=== PATIENT | female | born 1955 | race Caucasian/White ===

== ENCOUNTER → 2017-08-17 | Outpatient (CLI) | payer BC ==
[~2017-08-17] MED LIST: ALB17R INH; ASPI-1471 PO; CETI1TAB75 PO; FLU20 PO; FLU220R INH; FLU44R IH; HYDR-4225 PO; LANS30CA70 PO; LEV100 PO; LEVO125T77 PO; METO25TA23 PO; MON10 PO; MONT10TA22 PO; PER PO; PROAIRPT IH; VIT-9 PO; VITA-200 PO
--- NOTE | 2017-08-17 09:16 | EKG ---
FACILITY: [facility] PATIENT NAME: VINNY EVANS : [id number] MR: [id number] V: [id number] EXAM DATE: ORDERING PHYSICIAN: VIKRAM HOOPER TECHNOLOGIST: BONIFACIO Rios Reason : PREOP-LEFT WRIST Blood Pressure : / mmHG Vent. Rate : 062 BPM Atrial Rate : 062 BPM P-R Int : 182 ms QRS Dur : 076 ms QT Int : 404 ms P-R-T Axes : -03 -12 024 degrees QTc Int : 410 ms Normal sinus rhythm with sinus arrhythmia Normal ECG When compared with ECG of 14-JAN-2013 13:14, No significant change was found Confirmed by MINDY AMADOR ([id number]) on 08/17/2017 4:57:02 PM Referred By: SANDIE Confirmed By:MINDY AMADOR
== END ==
LOC: LAB 08:08
PROVIDERS: ATTEND Anesthesiology
DX: Z01.810 Encounter for preprocedural cardiovascular examination (principal); Z01.812 Encounter for preprocedural laboratory examination; E03.9 Hypothyroidism, unspecified; M65.4 Radial styloid tenosynovitis [de Quervain]
CPT/HCPCS: 36415; 82310; 82374; 82435; 82565; 82947; 84132; 84295; 84443; 84520; 93005

== ENCOUNTER → 2018-03-11 | Outpatient (CLI) | payer BC ==
--- NOTE | 2018-03-11 19:32 | RADIOLOGY IMAGING REPORT ---
FACILITY: [facility] PATIENT NAME: Pallavi Cobian : 1955 MR: [id number] V: [id number] EXAM DATE: ORDERING PHYSICIAN: MAIKEL SINGLETARY TECHNOLOGIST: Location: [facility] Patient: Pallavi Cobian : 1955 Visit/Account:[id number] Date of Sevice: 03/11/2018 Technique: CHEST PA AND LAT HISTORY: Cough Comparison studies: Chest radiographs August 19, 2015 FINDINGS: No acute airspace consolidation. There is mild central peribronchial thickening. The cardio mediastinal silhouette is unchanged. IMPRESSION: 1. Mild central peribronchial thickening which can be seen in the setting of bronchitis, asthma or t obacco usage. Report Dictated By: Sudheer Sanchez DO at 03/11/2018 7:27 PM Report E-Signed By: Sudheer Sanchez DO at 03/11/2018 7:28 PM WSN:[id number]
== END ==
LOC: RAD 17:27
PROVIDERS: ATTEND Family Medicine
DX: R05 Cough (principal)
CPT/HCPCS: 71046

== ENCOUNTER 2018-10-03 13:12 | Emergency (ER) | payer BC ==
--- NOTE | 2018-10-03 13:20 | ER Report ---
History and Physical Time Seen By MD: 13:19 HPI/ROS CHIEF COMPLAINT: Fall HISTORY OF PRESENT ILLNESS: This is a 63-year-old female who presents to emergency department for follow-up. Patient states that 5 days ago she tripped while in the kitchen falling face 1st onto her hardwood floor, hit her chest at the same time, she did not come in for an evaluation at that time. She does have some facial discomfort and mild headaches, she also complains of anterior chest discomfort. She has bruising to both eyes, her left chin as well as her left temporal area. She's been taking ibuprofen since the injury to help with pain, she also takes a daily aspirin. She is unsure if she had a positive loss of consciousness. No fevers since. No visual disturbances, no bleeding from eyes, ears nose or mouth. REVIEW OF SYSTEMS: Constitutional: No fever, no chills. Eyes: No discharge. ENT: No sore throat. Cardiovascular: As above. Respiratory: No cough, no shortness of breath. Gastrointestinal: No abdominal pain, no vomiting. Genitourinary: No hematuria. Musculoskeletal: As above. Skin: As above. Neurological: No headache. Allergies: Uncoded Allergies: Hayfever (Allergy, Unknown, UNKNOWN, 07/26/11) Home Meds Active Scripts Hydrocodone Bit/Acetaminophen (HYDROCODON-ACETAMINOPHEN 5-325) 1 Each Tablet, 1 EACH PO Q4-6H PRN for PAIN, #12 TAB Prov:KESHA HARP- 10/03/18 Ondansetron Hcl (ZOFRAN) 4 Mg Tablet, 4 MG PO Q4-6H PRN for prn, #20 TAB Prov:KESHA HARP-BC 10/03/18 Lidocaine (Lidocaine) 5 % Adh..patch, 1 PATCH.24H TOP DAILY PRN for prn, #8 PATCH.24H 0 Refills Prov:KESHA HARP 10/03/18 Reported Medications Multivitamin (MULTIVITAMINS) 1 Each Capsule, 1 EACH PO, CAPSULE 10/03/18 Vit A/Vit C/Vit E/Zinc/Copper (PRESERVISION AREDS TABLET) 1 Each Tablet, 1 EACH PO DAILY 09/25/16 Metoprolol Succinate (METOPROLOL SUCCINATE) 25 Mg Tab.er.24h, 1 TAB PO BID TAKE ONE TABLET BY MOUTH EVERY DAY 01/14/13 P-Ephed Hcl/Cetirizine Hcl (Zyrtec-D Tablet) 1 Tab.sr .12 H Tab.sr.12h, 1 TAB.SR PO QODAY, 0 Refills 11/20/08 Levothyroxine Sodium (Levoxyl) 125 Mcg Tablet, 112 MCG PO DAILY, 0 Refills 11/20/08 Lansoprazole (Prevacid) 30 Mg Capsule.dr, 30 MG PO QDAY, 0 Refills 11/20/08 Montelukast Sodium (Singulair) 10 Mg Tab, 10 MG PO QDAY, 0 Refills 11/20/08 Fluoxetine Hcl (Prozac) 20 Mg Cap, 40 MG PO DAILY, #20 0 Refills 11/20/08 Fluticasone Propionate (Flovent Hfa 220 Mcg) 12 Gm Aer.w.adap, 2 PUFF INH DAILY PRN for ALLERGY SYMPTOMS, 0 Refills 11/20/08 Discontinued Reported Medications Aspirin (ASPIR 81) 81 Mg Tablet.dr, 81 MG PO QDAY, TAB 09/25/16 Vitamin E Acetate (VITAMIN E) 400 Unit Capsule, 400 UNIT PO DAILY, CAPSULE 09/25/16 Past Medical/Surgical History The patient has a past medical and surgical history of headaches, frequent bronchitis, asthma, hiatal hernia, hypothyroidism, hysterectomy, history of smoking. Reviewed Nurses Notes: Yes Hx Smoking: Yes Smoking Status: Former Smoker Exposure to Second Hand Smoke?: No Hx Substance Use Disorder: No Hx Alcohol Use: Yes Constitutional Vital Sign - Last 24 Hours 10/03/18 10/03/18 10/03/18 10/03/18 13:24 13:30 14:00 15:00 Temp 98.2 Pulse 69 66 61 63 Resp 20 B/P (MAP) 192/133 174/110 (131) 166/103 (124) 170/102 (124) Pulse Ox 96 94 91 94 O2 Delivery Room Air 10/03/18 10/03/18 10/03/18 10/03/18 15:30 15:37 15:45 16:00 Pulse 64 65 B/P (MAP) 137/120 (126) 184/100 (128) 147/95 (112) 160/91 (114) Pulse Ox 93 96 10/03/18 10/03/18 10/03/1819 16:15 16:20 16:25 16:30 Pulse 67 65 65 B/P (MAP) 157/92 (113) 143/87 (105) Pulse Ox 96 90 97 10/03/18 16:35 Pulse 67 Pulse Ox 96 Physical Exam General Appearance: The patient is alert, has no immediate need for airway protection and no signs of toxicity. Eyes: Pupils equal and round no pallor or injection. ENT, Mouth: Mucous membranes are moist. Respiratory: There are no retractions, lungs are clear to auscultation. Cardiovascular: Regular rate and rhythm. No murmurs, clicks or rubs. Gastrointestinal: Abdomen is soft and non tender, no masses, bowel sounds normal. Neurological: Alert and oriented 4. Moving all extremities. Following all commands. No focal neuro deficits. Skin: Healing contusions to bilateral orbits and left chin and left temporal region. Musculoskeletal: Neck is supple non tender. Anterior chest pain with palpation, no crepitus or bruising or deformities identified. Extremities are nontender, nonswollen and have full range of motion. DIFFERENTIAL DIAGNOSIS: After history and physical exam differential diagnosis was considered for contusion, rib fracture, intracranial bleed, facial fracture, facial contusion. Medical Decision Making Data Points Result Diagram: 10/03/18 1341 10/03/18 1341 Laboratory Hematology Test 10/03/18 13:41 Red Blood Count 4.64 M/uL (4.17-5.56) Mean Corpuscular Volume 92.0 fL (80.0-96.0) Mean Corpuscular Hemoglobin 31.4 pg (26.0-33.0) Mean Corpuscular Hemoglobin Concent 34.1 g/dL (32.0-36.0) Red Cell Distribution Width 13.9 % (11.5-14.5) Mean Platelet Volume 8.0 fL (7.2-11.1) Neutrophils (%) (Auto) 73.6 % (39.4-72.5) Lymphocytes (%) (Auto) 13.9 % (17.6-49.6) Monocytes (%) (Auto) 7.1 % (4.1-12.4) Eosinophils (%) (Auto) 4.6 % (0.4-6.7) Basophils (%) (Auto) 0.8 % (0.3-1.4) Nucleated RBC Relative Count (auto) 0.0 /100WBC Neutrophils # (Auto) 7.5 K/uL (2.0-7.4) Lymphocytes # (Auto) 1.4 K/uL (1.3-3.6) Monocytes # (Auto) 0.7 K/uL (0.3-1.0) Eosinophils # (Auto) 0.5 K/uL (0.0-0.5) Basophils # (Auto) 0.1 K/uL (0.0-0.1) Nucleated RBC Absolute Count (auto) 0.00 K/uL Prothrombin Time 12.4 seconds (12.0-14.4) Prothromb Time International Ratio 0.92 Activated Partial Thromboplast Time 29 seconds (23-35) Sodium Level 131 mmol/L (137-145) Potassium Level 4.3 mmol/L (3.5-5.0) Chloride Level 93 mmol/L (98-107) Carbon Dioxide Level 24 mmol/L (22-31) Blood Urea Nitrogen 7 mg/dl (7-18) Creatinine 0.60 mg/dl (0.52-1.04) Glomerular Filtration Rate Calc > 60.0 Random Glucose 93 mg/dl (75-110) Calcium Level 9.3 mg/dl (8.4-10.2) Total Bilirubin 0.3 mg/dl (0.2-1.3) Aspartate Amino Transf (AST/SGOT) 30 U/L (0-35) Alanine Aminotransferase (ALT/SGPT) 34 U/L (0-56) Alkaline Phosphatase 77 U/L (0-126) Total Protein 6.8 g/dl (6.3-8.2) Albumin 4.0 g/dl (3.5-5.0) Chemistry Test 10/03/18 13:41 White Blood Count 10.2 k/uL (4.5-11.0) Red Blood Count 4.64 M/uL (4.17-5.56) Hemoglobin 14.5 g/dL (12.0-16.0) Hematocrit 42.7 % (34.0-47.0) Mean Corpuscular Volume 92.0 fL (80.0-96.0) Mean Corpuscular Hemoglobin 31.4 pg (26.0-33.0) Mean Corpuscular Hemoglobin Concent 34.1 g/dL (32.0-36.0) Red Cell Distribution Width 13.9 % (11.5-14.5) Platelet Count 302 K/uL (150-450) Mean Platelet Volume 8.0 fL (7.2-11.1) Neutrophils (%) (Auto) 73.6 % (39.4-72.5) Lymphocytes (%) (Auto) 13.9 % (17.6-49.6) Monocytes (%) (Auto) 7.1 % (4.1-12.4) Eosinophils (%) (Auto) 4.6 % (0.4-6.7) Basophils (%) (Auto) 0.8 % (0.3-1.4) Nucleated RBC Relative Count (auto) 0.0 /100WBC Neutrophils # (Auto) 7.5 K/uL (2.0-7.4) Lymphocytes # (Auto) 1.4 K/uL (1.3-3.6) Monocytes # (Auto) 0.7 K/uL (0.3-1.0) Eosinophils # (Auto) 0.5 K/uL (0.0-0.5) Basophils # (Auto) 0.1 K/uL (0.0-0.1) Nucleated RBC Absolute Count (auto) 0.00 K/uL Prothrombin Time 12.4 seconds (12.0-14.4) Prothromb Time International Ratio 0.92 Activated Partial Thromboplast Time 29 seconds (23-35) Glomerular Filtration Rate Calc > 60.0 Calcium Level 9.3 mg/dl (8.4-10.2) Total Bilirubin 0.3 mg/dl (0.2-1.3) Aspartate Amino Transf (AST/SGOT) 30 U/L (0-35) Alanine Aminotransferase (ALT/SGPT) 34 U/L (0-56) Alkaline Phosphatase 77 U/L (0-126) Total Protein 6.8 g/dl (6.3-8.2) Albumin 4.0 g/dl (3.5-5.0) Coagulation Test 10/03/18 13:41 Prothrombin Time 12.4 seconds Prothromb Time International Ratio 0.92 Activated Partial Thromboplast Time 29 seconds EKG/Imaging Imaging PATIENT NAME: Pallavi Cobian : 1955 MR: [id number] V: [id number] EXAM DATE: ORDERING PHYSICIAN: KESHA HARP TECHNOLOGIST: Location: [facility] Patient: Pallavi Cobian : 1955 Visit/Account:[id number] Date of Sevice: 10/03/2018 EXAMINATION: CT HEAD AND MAXILLOFACIAL WITHOUT CONTRAST COMPARISON: None available HISTORY: trip and fall, hit chest and face PROCEDURE: Noncontrast multiplanar head CT and maxillofacial CT One of the following dose optimization techniques was utilized in the performance of this exam: Automated exposure control; adjustment of the mA and/or kV according to the patient's size; or use of an iterative reconstruction technique. Specific details can be referenced in the facility's radiology CT exam operational policy. FINDINGS: CT head without contrast: Brain volume: Mild global volume loss. Hemorrhage/extra-axial fluid: None. Mass effect/midline shift/edema: None. Ischemia: Bateman-white differentiation is preserved. Ventricles and basal cisterns: Within normal limits. Posterior fossa: Negative. Vessels: Negative. Calvarium, skull base, and scalp: Left frontal scalp contusion. No fracture. CT maxillofacial without contrast: Mandible, temporomandibular joints, and teeth: Negative. Orbits and orbital contents: No orbit fracture. Globes and orbital contents are symmetric. Paranasal sinuses and mastoid air cells: Negative. Nasal bones, anterior nasal spine, and nasal septum: Negative. Zygomatic arches and pterygoid plates: Negative. Facial soft tissues: Negative. Craniocervical junction: Within normal limits. IMPRESSION: 1. No evidence of acute intracranial trauma. 2. Left frontal scalp contusion. 3. No maxillofacial fracture. Report Dictated By: Eas Braswell MD at 10/03/2018 3:24 PM Report E-Signed By: Esa Braswell MD at 10/03/2018 3:32 PM WSN:[id number] PATIENT NAME: Pallavi Cobian : 1955 MR: [id number] V: [id number] EXAM DATE: [id number] ORDERING PHYSICIAN: KESHA HARP TECHNOLOGIST: Location: [facility] Patient: Pallavi Cobian : 1955 Visit/Account:[id number] Date of Sevice: 10/03/2018 CT CHEST (CONTRAST) History: trip and fall, hit chest and face TECHNIQUE: Contiguous axial images were performed through the chest to the level of the adrenal glands following the administration of IV contrast. Coronal and sagittal reformatting was also performed.Dose Lowering Technique One of the following dose optimization techniques was utilized in the perfor lambert of this exam: Automated exposure control; adjustment of the mA and/or kV according to the patient's size; or use of an iterative reconstruction technique. Specific details can be referenced in the facility's radiology CT exam operational policy. Contrast: 75 mL Isovue-370 COMPARISON STUDIES: CT abdomen pelvis March 10, 2011. Lungs / Pleura: There is coarse linear stranding in the lower lobes consistent with scarring versus atelectasis. There is very mild dependent change in the posterior sulci of both lower lobes and small bilateral posterior layering pleural effusions, left greater than right. There is a groundglass opacity in the periphery of the left upper lobe. This is adjacent to a nondisplaced fracture of the left third rib. Nondisplaced fractures are also noted through the left second, fourth, fifth, sixth, seventh and eighth ribs. No pneumothorax is seen Mediastinum/nodes: negative. Heart and vessels: negative. Musculoskeletal / Body wall: Please see above discussion under lungs Upper abdomen: Small hiatal hernia IMPRESSION: There multiple nondisplaced left-sided rib fractures through the second through eighth ribs. There is a small groundglass opacity in the periphery of the left upper lobe adjacent to the left third rib fracture likely representing a small contusion. There is no evidence of a pneumothorax There are mild dependent changes in the posterior sulci of both lower lobes and small bilateral posterior layering pleural effusions, left greater than right. Small hiatal hernia Report Dictated By: Emili Valdez MD at 10/03/2018 2:49 PM Report E-Signed By: Emili Valdez MD at 10/03/2018 2:57 PM WSN:[email or web address] ED Course/Re-evaluation Clinical Indication for ER IV: Hydration, IV Access ED Course The patient was admitted to room. A history and physical were obtained. Differential diagnoses were considered. An IV was started. A CBC, CMP and INR were obtained. CT of the head was negative for any acute intracranial abnormalities. CT of the chest was negative for pneumonia however did show left anterior rib fractures 2 through 8, nondisplaced. Negative facial bone CT. I did review the results with the patient and her who is at bedside, I recommended admission to the hospital, patient declined, she was sent home with hydrocodone, Zofran and lidocaine patches. I did give the patient 4 mg IV morphine 2 on the emergency department she was also given 1 lidocaine patch to the left anterior chest for comfort. The patient was encouraged to follow-up with her primary care provider early next week for reevaluation, patient expressed understanding and was discharged home. I did recommend a low threshold for returning to ER for reevaluation. Patient was agreeable. 10/03/2018 4:08:15 pm I did recommend an admission to the hospital, however the patient declined at this time, she said that she preferred to go home. Decision to Disposition Date: October 03, 2018 Decision to Disposition Time: 15:59 Depart Departure Latest Vital Signs Vital Signs Date Time Temp Pulse Resp B/P (MAP) Pulse Ox O2 Delivery O2 Flow Rate FiO2 10/03/18 16:35 67 96 10/03/18 16:30 143/87 (105) 10/03/18 13:24 98.2 20 Room Air Impression: Primary Impression: Multiple fractures of left upper extremity, ribs, and sternum Additional Impressions: Fall Facial contusion Condition: Improved Disposition: HOME OR SELF-CARE Referrals: MAIKEL GARNER DO (PCP) 1 Week New Scripts Hydrocodone Bit/Acetaminophen (HYDROCODON-ACETAMINOPHEN 5-325) 1 Each Tablet 1 EACH PO Q4-6H PRN for PAIN, #12 TAB Prov: KESHA HARP RUFFLING MACHINE OPERATOR-BC 10/03/18 Ondansetron Hcl (ZOFRAN) 4 Mg Tablet 4 MG PO Q4-6H PRN for prn, #20 TAB Prov: KESHA HARP RUFFLING MACHINE OPERATOR-BC 10/03/18 Lidocaine (Lidocaine) 5 % Adh..patch 1 PATCH.24H TOP DAILY PRN for prn, #8 PATCH.24H 0 Refills Prov: KESHA HARP RUFFLING MACHINE OPERATOR-BC 5/30/19 Patient Instructions: Fall Prevention (ED), Rib Fracture (ED) Additional Instructions: You have 6 rib fractures on the left chest. Please be careful when you are up walking around. Use the flutter valve every 2-3 hours, this will hopefully help prevent pneumonia from developing. You can now use Ibuprofen if you need to for pain, if you are taking hydrocodone do not take Tylenol as the same time. Use the lidocaine patches as needed for pain, 1 patch once a day, 12 hours on 12 hours off. Drink plenty of water Get plenty of rest. Follow up with Dr. Garner by Sunday or Sunday next week for reevaluation. Return to the ED for any other concerns or worsening symptoms. Problem Qualifiers Primary Impression: Multiple fractures of left upper extremity, ribs, and sternum Encounter type: initial encounter Fracture type: closed Qualified Codes: S42.302A - Unspecified fracture of shaft of humerus, left arm, initial encounter for closed fracture; S22.20XA - Unspecified fracture of sternum, initial encounter for closed fracture; S22.49XA - Multiple fractures of ribs, unspecified side, initial encounter for closed fracture Additional Impressions: Fall Encounter type: initial encounter Qualified Codes: W19.XXXA - Unspecified fall, initial encounter Facial contusion Encounter type: initial encounter Qualified Codes: S00.83XA - Contusion of other part of head, initial encounter KESHA HARP- October 03, 2018 13:20
[2018-10-03] MEDS ORDERED: MULT1CAP59 PO (13:35)
[2018-10-03] MEDS ORDERED: IOPAMIDOL 76% 100 ML INFUS BTL 100 ML ONE (13:46)
[2018-10-03 13:52] LABS: PLATELET COUNT, AUTOMATED 302 K/uL (150-450)
[2018-10-03 13:58] LABS: INR 0.92
[2018-10-03] MEDS ORDERED: MORPHINE 4 MG/ML SDV IVP ONE ×2 (14:00→15:35)
--- NOTE | 2018-10-03 15:03 | RADIOLOGY IMAGING REPORT ---
FACILITY: [facility] PATIENT NAME: Pallavi Cobian : 1955 MR: [id number] V: [id number] EXAM DATE: ORDERING PHYSICIAN: KESHA HARP TECHNOLOGIST: Location: [facility] Patient: Pallavi Cobian : 1955 Visit/Account:[id number] Date of Sevice: 10/03/2018 CT CHEST (CONTRAST) History: trip and fall, hit chest and face TECHNIQUE: Contiguous axial images were performed through the chest to the level of the adrenal gla nds following the administration of IV contrast. Coronal and sagittal reformatting was also perform ed.Dose Lowering Technique One of the following dose optimization techniques was utilized in the performance of this exam: Autom ated exposure control; adjustment of the mA and/or kV according to the patient's size; or use of an i terative reconstruction technique. Specific details can be referenced in the facility's radiology C T exam operational policy. Contrast: 75 mL Isovue-370 COMPARISON STUDIES: CT abdomen pelvis March 10, 2011. Lungs / Pleura: There is coarse linear stranding in the lower lobes consistent with scarring versus atelectasis. There is very mild dependent change in the posterior sulci of both lower lobes and sma ll bilateral posterior layering pleural effusions, left greater than right. There is a groundglass o pacity in the periphery of the left upper lobe. This is adjacent to a nondisplaced fracture of the l eft third rib. Nondisplaced fractures are also noted through the left second, fourth, fifth, sixth, seventh and eighth ribs. No pneumothorax is seen Mediastinum/nodes: negative. Heart and vessels: negative. Musculoskeletal / Body wall: Please see above discussion under lungs Upper abdomen: Small hiatal hernia IMPRESSION: There multiple nondisplaced left-sided rib fractures through the second through eighth ribs. There i s a small groundglass opacity in the periphery of the left upper lobe adjacent to the left third rib fracture likely representing a small contusion. There is no evidence of a pneumothorax There are mild dependent changes in the posterior sulci of both lower lobes and small bilateral poste rior layering pleural effusions, left greater than right. Small hiatal hernia Report Dictated By: Emili Valdez MD at 10/03/2018 2:49 PM Report E-Signed By: Emili Valdez MD at 10/03/2018 2:57 PM JAMESN:NOELLE
--- NOTE | 2018-10-03 15:36 | RADIOLOGY IMAGING REPORT ---
FACILITY: [facility] PATIENT NAME: Pallavi Cobian : 1955 MR: [id number] V: [id number] EXAM DATE: ORDERING PHYSICIAN: KESHA HARP TECHNOLOGIST: Location: [facility] Patient: Pallavi Cobian : 1955 Visit/Account:[id number] Date of Sevice: 10/03/2018 EXAMINATION: CT HEAD AND MAXILLOFACIAL WITHOUT CONTRAST COMPARISON: None available HISTORY: trip and fall, hit chest and face PROCEDURE: Noncontrast multiplanar head CT and maxillofacial CT One of the following dose optimization techniques was utilized in the performance of this exam: Autom ated exposure control; adjustment of the mA and/or kV according to the patient's size; or use of an i terative reconstruction technique. Specific details can be referenced in the facility's radiology C T exam operational policy. FINDINGS: CT head without contrast: Brain volume: Mild global volume loss. Hemorrhage/extra-axial fluid: None. Mass effect/midline shift/edema: None. Ischemia: Bateman-white differentiation is preserved. Ventricles and basal cisterns: Within normal limits. Posterior fossa: Negative. Vessels: Negative. Calvarium, skull base, and scalp: Left frontal scalp contusion. No fracture. CT maxillofacial without contrast: Mandible, temporomandibular joints, and teeth: Negative. Orbits and orbital contents: No orbit fracture. Globes and orbital contents are symmetric. Paranasal sinuses and mastoid air cells: Negative. Nasal bones, anterior nasal spine, and nasal septum: Negative. Zygomatic arches and pterygoid plates: Negative. Facial soft tissues: Negative. Craniocervical junction: Within normal limits. IMPRESSION: 1. No evidence of acute intracranial trauma. 2. Left frontal scalp contusion. 3. No maxillofacial fracture. Report Dictated By: Esa Braswell MD at 10/03/2018 3:24 PM Report E-Signed By: Esa Braswell MD at 10/03/2018 3:32 PM WSN:[email or web address]
--- NOTE | 2018-10-03 15:37 | RADIOLOGY IMAGING REPORT ---
FACILITY: [facility] PATIENT NAME: Pallavi Cobian : 1955 MR: [id number] V: [id number] EXAM DATE: ORDERING PHYSICIAN: KESHA HARP TECHNOLOGIST: Location: [facility] Patient: Pallavi Cobian : 1955 Visit/Account:[id number] Date of Sevice: 10/03/2018 EXAMINATION: CT HEAD AND MAXILLOFACIAL WITHOUT CONTRAST COMPARISON: None available HISTORY: trip and fall, hit chest and face PROCEDURE: Noncontrast multiplanar head CT and maxillofacial CT One of the following dose optimization techniques was utilized in the performance of this exam: Autom ated exposure control; adjustment of the mA and/or kV according to the patient's size; or use of an i terative reconstruction technique. Specific details can be referenced in the facility's radiology C T exam operational policy. FINDINGS: CT head without contrast: Brain volume: Mild global volume loss. Hemorrhage/extra-axial fluid: None. Mass effect/midline shift/edema: None. Ischemia: Bateman-white differentiation is preserved. Ventricles and basal cisterns: Within normal limits. Posterior fossa: Negative. Vessels: Negative. Calvarium, skull base, and scalp: Left frontal scalp contusion. No fracture. CT maxillofacial without contrast: Mandible, temporomandibular joints, and teeth: Negative. Orbits and orbital contents: No orbit fracture. Globes and orbital contents are symmetric. Paranasal sinuses and mastoid air cells: Negative. Nasal bones, anterior nasal spine, and nasal septum: Negative. Zygomatic arches and pterygoid plates: Negative. Facial soft tissues: Negative. Craniocervical junction: Within normal limits. IMPRESSION: 1. No evidence of acute intracranial trauma. 2. Left frontal scalp contusion. 3. No maxillofacial fracture. Report Dictated By: Esa Braswell MD at 10/03/2018 3:24 PM Report E-Signed By: Esa Braswell MD at 10/03/2018 3:32 PM WSN:[email or web address]
[2018-10-03] MEDS ORDERED: LIDOCAINE 5% PATCH TP SCH (16:00)
[2018-10-03] MEDS ORDERED: LIDO700A19 TOP (16:02)
[2018-10-03] MEDS ORDERED: HYDR-385 PO (16:02)
[2018-10-03] MEDS ORDERED: ONDA4TAB97 PO (16:02)
[2018-10-03 16:30] VITALS: BP 143/87
[2018-10-03] MEDS ORDERED: PATCH REMOVAL 1 EA TOP SCH (21:00)
== END 2018-10-03 16:41 | disposition home or self-care (01) ==
LOC: ER 13:24
DX: S42.302A Unspecified fracture of shaft of humerus, left arm, initial encounter for closed fracture (principal); S22.42XA Multiple fractures of ribs, left side, initial encounter for closed fracture; S22.20XA Unspecified fracture of sternum, initial encounter for closed fracture; S00.83XA Contusion of other part of head, initial encounter; E03.9 Hypothyroidism, unspecified; J45.909 Unspecified asthma, uncomplicated; W19.XXXA Unspecified fall, initial encounter; Z79.899 Other long term (current) drug therapy; Z79.82 Long term (current) use of aspirin; Z87.891 Personal history of nicotine dependence
CPT/HCPCS: 70450; 70486; 71260; 85025; 85610; 85730; 94667; 96374; 96376; 99284; J2270; Q9967; 82040; 82247; 82310; 82374; 82435; 82565; 82947; 84075; 84132; 84155; 84295; 84450; 84460; 84520

== ENCOUNTER 2018-12-11 19:32 | Emergency (ER) | payer BC ==
[~2018-12-11 19:32] MED LIST changes: +HYDR-385 PO; +LIDO700A19 TOP; +MULT1CAP59 PO; +ONDA4TAB97 PO
--- NOTE | 2018-12-11 19:39 | ER Report ---
History and Physical Time Seen By MD: 19:35 Hx. of Stated Complaint: PT WAS BIT BY HER OWN DOG ON RIGHT HAND. HPI/ROS CHIEF COMPLAINT: Dog bite HISTORY OF PRESENT ILLNESS: This is a 63-year-old female who presents to emergency department for a dog bite. Patient states about 15 minutes prior to arrival, she was bit in the right hand by her dog. Patient states she was trying to prevent a dog fight between her two dogs. Patient has several puncture wounds and a laceration to the distal right forearm. Bleeding is controlled. She does have a hematoma to the back of her hand. No other complaints. No fevers or chills. No nausea or vomiting. No chest pain or shortness of breath. Her dogs were recently vaccinated. REVIEW OF SYSTEMS: Respiratory: No cough, no dyspnea. Cardiovascular: No chest pain, no palpitations. Gastrointestinal: No vomiting, no abdominal pain. Musculoskeletal: No back pain. Integument: As above. Allergies: Uncoded Allergies: Hayfever (Allergy, Unknown, UNKNOWN, 07/26/11) Home Meds Active Scripts Amoxicillin/Pot Clav 875-125 Mg Tab (AUGMENTIN 875-125 TABLET) 1 Each Tablet, 1 TAB PO Q12H for 7 Days, #14 TAB 0 Refills Prov:KESHA HARP [employer]-[facility] 12/11/18 Reported Medications Multivitamin (MULTIVITAMINS) 1 Each Capsule, 1 EACH PO, CAPSULE 10/03/18 Vit A/Vit C/Vit E/Zinc/Copper (PRESERVISION AREDS TABLET) 1 Each Tablet, 1 EACH PO DAILY 09/25/16 Metoprolol Succinate (METOPROLOL SUCCINATE) 25 Mg Tab.er.24h, 1 TAB PO BID TAKE ONE TABLET BY MOUTH EVERY DAY 01/14/13 P-Ephed Hcl/Cetirizine Hcl (Zyrtec-D Tablet) 1 Tab.sr .12 H Tab.sr.12h, 1 TAB.SR PO QODAY, 0 Refills 11/20/08 Levothyroxine Sodium (Levoxyl) 125 Mcg Tablet, 112 MCG PO DAILY, 0 Refills 11/20/08 Lansoprazole (Prevacid) 30 Mg Capsule.dr, 30 MG PO QDAY, 0 Refills 11/20/08 Montelukast Sodium (Singulair) 10 Mg Tab, 10 MG PO QDAY, 0 Refills 11/20/08 Fluoxetine Hcl (Prozac) 20 Mg Cap, 40 MG PO DAILY, #20 0 Refills 11/20/08 Fluticasone Propionate (Flovent Hfa 220 Mcg) 12 Gm Aer.w.adap, 2 PUFF INH DAILY PRN for ALLERGY SYMPTOMS, 0 Refills 11/20/08 Discontinued Scripts Hydrocodone Bit/Acetaminophen (HYDROCODON-ACETAMINOPHEN 5-325) 1 Each Tablet, 1 EACH PO Q4-6H PRN for PAIN, #12 TAB Prov:KESHA HARP [facility] 10/03/18 Ondansetron Hcl (ZOFRAN) 4 Mg Tablet, 4 MG PO Q4-6H PRN for prn, #20 TAB Prov:KESHA HARP [facility] 10/03/18 Lidocaine (Lidocaine) 5 % Adh..patch, 1 PATCH.24H TOP DAILY PRN for prn, #8 PATCH.24H 0 Refills Prov:KESHA HARP [facility]- 10/03/18 Past Medical/Surgical History The patient has a past medical and surgical history of headaches, frequent bronchitis, asthma, hiatal hernia, hypothyroidism, hysterectomy, eczema, history of smoking. Reviewed Nurses Notes: Yes Hx Smoking: Yes Smoking Status: Former Smoker Exposure to Second Hand Smoke?: No Hx Substance Use Disorder: No Hx Alcohol Use: Yes Constitutional Vital Sign - Last 24 Hours 12/11/18 12/11/18 12/11/18 12/11/18 19:32 19:36 19:47 20:00 Temp 98.1 Pulse 83 77 Resp 16 B/P (MAP) 166/101 (122) 166/101 114/68 (83) Pulse Ox 88 94 O2 Delivery Room Air 12/11/18 12/11/18 12/11/18 12/11/18 20:02 20:17 20:30 20:32 Pulse 87 79 77 B/P (MAP) 110/53 (72) Pulse Ox 90 95 93 12/11/18 12/11/18 12/11/18 12/11/18 20:47 20:52 21:00 21:07 Pulse 79 75 75 B/P (MAP) 118/63 (81) Pulse Ox 93 90 90 Physical Exam General Appearance: The patient is alert, has no immediate need for airway protection and no current signs of toxicity. Eyes: Pupils equal and round no injection. Respiratory: Chest is non tender, lungs are clear to auscultation. Cardiac: regular rate and rhythm. Gastrointestinal: Abdomen is soft and non tender, no masses, bowel sounds normal. Musculoskeletal: Neck: Neck is supple and non tender. Extremities have full range of motion and are non tender. Skin: Hematoma to the dorsum of the right hand, several puncture wounds to the right hand, 2 cm laceration to the distal right forearm on the radial side, bleeding is controlled, CMS intact. DIFFERENTIAL DIAGNOSIS: After history and physical exam differential diagnosis was considered for dog bite. Medical Decision Making EKG/Imaging Imaging PATIENT NAME: Pallavi Cobian : 1955 MR: [id number] V: [id number] EXAM DATE: ORDERING PHYSICIAN: KESHA HARP TECHNOLOGIST: Location: [facility] Patient: Pallavi Cobian : 1955 Visit/Account:[id number] Date of Sevice: 12/11/2018 Right hand, 3 views. HISTORY: Dog bite. COMPARISON: None. Soft tissue swelling and irregularities are present in the dorsum of the hand and wrist. Moderate arthritic changes are scattered in the fingers, hand, and wrist. No acute fractures are identified. No radiopaque foreign bodies. IMPRESSION: Negative for acute bony abnormality. Report Dictated By: Lance Craig MD at 12/11/2018 8:42 PM Report E-Signed By: Lance Craig MD at 12/11/2018 8:44 PM WSN:[id number] ED Course/Re-evaluation ED Course The patient was admitted to room. A history of physical were obtained. Differential diagnoses were considered. An x-ray of the right hand was negative for any acute abnormalities. The wound was thoroughly irrigated and cleansed, the laceration was loosely repaired as noted below. The patient was started on antibiotics in the emergency department, she was also given a hydrocodone for pain relief, she was also given a take home pack for hydrocodone. I did send a prescription of the patient's pharmacy for Augmentin, she'll follow-up with her primary care provider for reevaluation of her wounds and to have the sutures removed. She was also placed in a splint for comfort instructed to remove the and every couple of hours to perform some gentle range of motion exercises. Patient expressed understanding and was discharged home. Tetanus was updated. Procedure: Laceration repair. Verbal consent was obtained from the patient. The 2 cm laceration on the distal right forearm was anesthetized in the usual fashion. The wound was scrubbed, draped and explored to its base with a gloved finger. There were no deep structures involved. No tendon injury was identified. The wound was repaired with 2, 5-0 Vicryl simple interrupted sutures, very loosely repaired. The wound repair was simple. The procedure was performed by myself. Decision to Disposition Date: Dec 11, 2018 Decision to Disposition Time: 20:57 Depart Departure Latest Vital Signs Vital Signs Date Time Temp Pulse Resp B/P (MAP) Pulse Ox O2 Delivery O2 Flow Rate FiO2 12/11/18 21:07 75 90 12/11/18 21:00 118/63 (81) 12/11/18 19:36 98.1 16 Room Air Impression: Primary Impression: Dog bite of right hand Additional Impression: Laceration Condition: Improved Disposition: HOME OR SELF-CARE Referrals: MAIKEL SINGLETARY DO (PCP) New Scripts Amoxicillin/Pot Clav 875-125 Mg Tab (AUGMENTIN 875-125 TABLET) 1 Each Tablet 1 TAB PO Q12H for 7 Days, #14 TAB 0 Refills Prov: KESHA HARP- 12/11/18 Patient Instructions: Acute Wound Care (ED), Animal Bite (ED), Hand Laceration Additional Instructions: Keep wound dry for 24-48 hours. Follow up with your primary care provider in the next 10 days to have sutures removed. Although he will be on antibiotics, please Monitor for signs of infection; redness, swelling, heat, discharge, increasing pain or red streaking. Take Tylenol or Ibuprofen as needed for pain. Take hydrocodone for severe pain, do not take Tylenol if he were taking hydrocodone. Return to the ER with any concerns. You may change dressing as needed, the laceration was loosely repaired as to allow drainage. Problem Qualifiers Primary Impression: Dog bite of right hand Encounter type: initial encounter Qualified Codes: S61.451A - Open bite of right hand, initial encounter; W54.0XXA - Bitten by dog, initial encounter KESHA HARP-BC Dec 11, 2018 19:39
[2018-12-11] MEDS ORDERED: DIPHTH/TETANUS/ACEL. PERTUSSIS IM ONLY ONE (19:50)
[2018-12-11] MEDS ORDERED: AMOX/CLAV 875 MG TAB PO ONE (19:55)
[2018-12-11] MEDS ORDERED: APAP/HYDROCODONE 325/5 TAB PO ONE (20:50)
--- NOTE | 2018-12-11 20:50 | RADIOLOGY IMAGING REPORT ---
FACILITY: [facility] [place] PATIENT NAME: Pallavi Cobian : 1955 MR: [id number] V: [id number] EXAM DATE: ORDERING PHYSICIAN: KESHA HARP TECHNOLOGIST: Location: [facility] Patient: Pallavi Cobian : 1955 Visit/Account:[id number] Date of Sevice: 12/11/2018 Right hand, 3 views. HISTORY: Dog bite. COMPARISON: None. Soft tissue swelling and irregularities are present in the dorsum of the hand and wrist. Moderate art hritic changes are scattered in the fingers, hand, and wrist. No acute fractures are identified. No r adiopaque foreign bodies. IMPRESSION: Negative for acute bony abnormality. Report Dictated By: Lance Craig MD at 12/11/2018 8:42 PM Report E-Signed By: Lance Craig MD at 12/11/2018 8:44 PM WSN:[id number]
[2018-12-11 21:00] VITALS: BP 118/63
[2018-12-11] MEDS ORDERED: ACET/HYDROC 5/325MG TH ER ONLY 2 TAB/BOTTLE PO ONE (21:00)
[2018-12-11] MEDS ORDERED: AMOX-559 PO (21:02)
== END 2018-12-11 21:12 | disposition home or self-care (01) ==
LOC: ER 20:01
DX: S61.451A Open bite of right hand, initial encounter (principal); S51.811A Laceration without foreign body of right forearm, initial encounter
CPT/HCPCS: 12001; 73130; 90471; 90715; 99283; L3763